=== PATIENT | male | born 1990 | race African-American/Black ===

== ENCOUNTER 2019-10-01 18:47 | Inpatient (IN) | payer SELFPAY ==
[~2019-10-01] VITALS: Ht 185.4 cm; Wt 79.9 kg
[2019-10-01] MEDS ORDERED: ASPIRIN 81MG TABLET PO ONE (19:30)
[2019-10-01 20:44] LABS: BASOPHILS % 0.6 % (0.0-2.0); EOSINOPHILS % 1.5 % (0.0-5.0); HEMATOCRIT. 47.6 % (42.0-52.0); HEMOGLOBIN. 16.8 g/dL (14.0-18.0); MEAN CORPUSCULAR HEMOGLOBIN 32.8 pg (28.0-32.0); MEAN CORPUSCULAR VOLUME 92.9 fL (80.0-94.0); MONOCYTES % 9.2 % (2.0-8.0); NEUTROPHILS % 66.7 % (40.0-76.0); PLATELET 256 x1000/uL (130-400); RED BLOOD CELL COUNT 5.12 mill/uL (4.7-6.1)
[2019-10-01 20:46] LABS: CHLORIDE 99 mEq/L (98-107)
[2019-10-01 20:50] LABS: D-DIMER 0.56 mg/L FEU (<0.50); INR 1.1; PARTIAL THROMBOPLASTIN TIME 26.9 sec (23.4-31.0); PROTHROMBIN TIME 11.7 sec (9.6-11.0)
[2019-10-01] MEDS ORDERED: NITROGLYCERIN 0.4MG TABLET SL SL PRN (22:30)
[2019-10-01] MEDS ORDERED: GUAIFENESIN 200MG/10ML SUGAR FREE UDC PO PRN (22:30)
[2019-10-01] MEDS ORDERED: ZOLPIDEM TARTRATE 5MG TABLET PO PRN (22:30)
[2019-10-01] MEDS ORDERED: CLONIDINE 0.1MG TABLET PO PRN (22:30)
[2019-10-01] MEDS ORDERED: LORAZEPAM 0.5MG TABLET PO PRN (22:30)
[2019-10-01] MEDS ORDERED: DOCUSATE SODIUM 100MG CAPSULE PO PRN (22:30)
[2019-10-01] MEDS ORDERED: IPRATROPIUM/ALBUTEROL 0.5-3(2.5)MG/3ML NEB ORI PRN (22:30)
[2019-10-01] MEDS ORDERED: ACETAMINOPHEN 325MG TABLET PO PRN ×2 (22:30)
[2019-10-01] MEDS ORDERED: KETOROLAC 15MG/ML VIAL IV PRN (22:30)
[2019-10-01] MEDS ORDERED: MAGNESIUM/ALUMINUM HYDROXIDE/SIMETHICONE 30ML UDC PO PRN (22:30)
[2019-10-01] MEDS ORDERED: ONDANSETRON HCL 4MG/2ML INJ IV PRN (22:30)
[2019-10-02] VITALS: BP 135/90
[2019-10-02 01:59] VITALS: BP 129/90
[2019-10-02 03:43] LABS: *AMPHETAMINES SCREEN URINE PRESUMTIVE POSITIVE (NEGATIVE); *BARBITURATES SCREEN URINE NEGATIVE (NEGATIVE); *BENZODIAZEPINES SCREEN URINE NEGATIVE (NEGATIVE); *COCAINE SCREEN URINE NEGATIVE (NEGATIVE); METHADONE URINE SCREEN NEGATIVE (NEGATIVE); OPIATES URINE SCREEN NEGATIVE (NEGATIVE)
[2019-10-02 03:44] LABS: CANNABINOID URINE SCREEN NEGATIVE (NEGATIVE); PHENCYCLIDINE URINE SCREEN NEGATIVE (NEGATIVE)
[2019-10-02 04:01] VITALS: BP 126/90
[2019-10-02 06:00] VITALS: BP 133/114
[2019-10-02 07:11] LABS: LDL CHOLESTEROL 110 mg/dL (5-100)
[2019-10-02 07:12] LABS: CREATINE KINASE 75 IU/L (39-308); HDL CHOLESTEROL 52 mg/dL (40-59)
[2019-10-02 07:15] LABS: CREATINE KINASE MB FRACTION < 1.0 ng/mL (0.5-3.6)
[2019-10-02 07:44] VITALS: BP 140/75
[2019-10-02 08:58] VITALS: BP 140/75
[2019-10-02] MEDS ORDERED: FAMOTIDINE 20MG TABLET PO SCH (09:00)
[2019-10-02] MEDS ORDERED: ASPIRIN 81MG EC TABLET PO SCH (09:00)
== END 2019-10-02 09:15 | disposition home or self-care (01) | DRG 243 ==
LOC: ER 20:19 → 3WST 22:28 → ENRESERV 22:38
PROVIDERS: ADMIT Internal Medicine; ATTEND Internal Medicine
DX: K21.9 Gastro-esophageal reflux disease without esophagitis (principal); M94.0 Chondrocostal junction syndrome [Tietze]; R07.89 Other chest pain; R74.0 Nonspecific elevation of levels of transaminase and lactic acid dehydrogenase [LDH]; Z79.899 Other long term (current) drug therapy
CPT/HCPCS: 36415; 71045; 71275; 80053; 80061; 80305; 80320; 82550; 82553; 83036; 83880; 84484; 85025; 85379; 93005; 93970; 99285; G0480